=== PATIENT | male | born 1995 | race Two or more races ===

== ENCOUNTER 2025-03-12 15:54 | Emergency (ER) | payer MEDICAID, OTHER ==
[~2025-03-12] VITALS: Ht 177.8 cm; Wt 77.3 kg
--- NOTE | 2025-03-12 17:12 | ED.PDOC ---
HPI (NEURO) HPI Comments 29y M who presents to the ED is EMS for chief complaint of generalized weakness. EMS states pt was found in a field and bystanders called. EMS arrived on scene and pt was alert and oriented and -pt admitted to ETOH and methamphetamines and fentanyl use today. Pt had 02 sat of 85% on room air with otherwise stable vitals and pt was brought to the ED. Pt now in the ED, states he wants rehabilitation. Pt otherwise denies any other symptoms in the ED. Pt states he is homeless. Chief Complaint: General Weakness Time Seen by MD: 17:10 Reviewed Notes: Medications, Allergies Information Source: Patient Mode of Arrival: EMS Brought in by: EMS Past Medical History PAST MEDICAL HISTORY: Denies Surgical History: Denies all surgeries Family History Family History: Reviewed,noncontributory to illness Social History Smoker: Non-Smoker Alcohol: Denies ETOH Use Drugs: Marijuana, Methamphetamine, Other (fentayl) Constitutional: denies: chills, diaphoresis, fatigue, fever, malaise, sweats, weakness, others EENTM: denies: blurred vision, double vision, ear bleeding, ear discharge, ear drainage, ear pain, ear ringing, eye pain, eye redness, hearing loss, mouth pain, mouth swelling, nasal discharge, nose bleeding, nose congestion, nose pain, photophobia, tearing, throat pain, throat swelling, voice changes, others Respiratory: denies: cough, hemoptysis, orthopnea, SOB at rest, shortness of breath, SOB with excertion, stridor, wheezing, others Cardiovascular: denies: chest pain, dizzy spells, diaphoresis, Dyspnea on exertion, edema, irregular heart beat, left arm pain, lightheadedness, palpit ations, PND, syncope, others Gastrointestinal: denies: abdomen distended, abdominal pain, blood streaked b owels, constipated, diarrhea, dysphagia, difficulty swallowing, hematemesis, melena, nausea, poor appetite, poor fluid intake, rectal bleeding, rectal pain, vomiting, others Genitourinary: denies: burning, dysuria, flank pain, frequency, hematuria, incontinence, penile discharge, penile sore, pain, testicle pain, testicle swelling, urgency, others Neurological: denies: dizziness, fainting, headache, left sided numbness, left sided weakness, numbness, paresthesia, pre-existing deficit, right sided numbness, right sided weakness, seizure, speech problems, tingling, tremors, weakness, others Musculoskeletal: denies: back pain, gout, joint pain, joint swelling, muscle pain, muscle stiffness, neck pain, others Integumetry: denies: bruises, change in color, change in hair/nails, dryness, laceration, lesions, lumps, rash, wounds, others Allergic/Immunocompromised: denies: Difficulty Healing, Frequent Infections, Hives, Itching, others Hematologic/Lymphatic: denies: anemia, blood clots, easy bleeding, easy bruisi ng, swollen glands, others Endocrine: denies: excessive hunger, excessive sweating, excessive thirst, exce ssive urination, flushing, intolerance to cold, intolerance to heat, unexplained weight gain, unexplained weight loss, others Psychiatric: denies: anxiety, bipolar disorder, depression, hopeless, panic disorder, schizophrenia, sleepless, suicidal, others All Other Systems: Reviewed and Negative Physical Exam General Appearance: Mild Distress, Normal, Other (Somnolent) HEENT: Normal ENT Inspection, PERRL/EOMI Neck: Full Range of Motion, Non-Tender, Normal, Normal Inspection Respiratory: Chest Non-Tender, Lungs Clear, No Accessory Muscle Use, No Respiratory Distress, Normal Breath Sounds Cardiovascular: No Edema, No JVD, No Murmur, No Gallop, Normal Peripheral Pulses, Regular Rate/Rhythm Breast Exam: Deferred Gastrointestinal: No Organomegaly, Non Tender, No Pulsatile Mass, Normal Bowel Sounds, Soft Genitalia: Deferred Pelvic: Deferred Rectal: Deferred Extremities: No calf tenderness, Normal capillary refill, Normal inspection, Normal range of motion, Non-tender, No pedal edema Neurologic: Alert, spiritual care coordinator II-XII nml as Tested, No Motor Deficits, Normal Affect, Normal Mood, No Sensory Deficits Cerebellar Function: Normal Reflexes: Normal Skin: Dry, Normal Color, Warm Peripheral Pulses: 1+ carotid (R), 1+ carotid (L) Lymphatic: No Adenopathy Was a procedure done? Was a procedure done?: No Differential Diagnosis (SZ) Seizure: Drug Ingestion, Hypocalcemia, Hypoglycemia, Hyponatremia CVA: Drug Overdose, Electrolyte Imbalance General Weakness: Dehydration, Dysrhythmia, Electrolyte imbalance, Guillain- [place], Other (drug use, METH use disorder, homeless) Headache: N/A X-Ray, Labs, Meds, VS Vital Signs Date Time Temp Pulse Resp B/P (MAP) Pulse Ox O2 Delivery O2 Flow Rate FiO2 03/12/25 17:48 102 03/12/25 16:12 96 Nasal Cannula* 2 28 03/12/25 16:09 97.8 83 12 158/89 96 97.8 Lab Test 03/12/25 19:55 03/12/25 18:01 Range/Units Urine Color Pending Urine Clarity Pending Urine pH Pending Urine Specific [place] Pending Urine Protein Pending Urine Ketones Pending Urine Blood Pending Urine Nitrite Pending Urine Bilirubin Pending Urine Urobilinogen Pending Urine Leukocyte Esterase Pending Urine RBC Pending Urine Microscopic WBC Pending Urine Squamous Epithelial Cells Pending Urine Bacteria Pending Urine Glucose Pending White Blood Count 8.4 4.4-10.8 10^3/uL Red Blood Count 5.36 4.5-5.90 10^6/uL Hemoglobin 14.8 13.5-17.5 g/dL Hematocrit 45.7 41.0-53.0 % Mean Corpuscular Volume 85.1 80.0-100.0 fL Mean Corpuscular Hemoglobin 27.7 L 28.0-32.0 pg Mean Corpuscular Hemoglobin Concent 32.5 32.0-36.0 g/dL Red Cell Distribution Width 15.2 H 11.8-14.3 % Platelet Count 233 140-450 10^3/uL Mean Platelet Volume 8.0 6.9-10.8 fL Neutrophils (%) (Auto) 81.4 H 37.0-80.0 % Lymphocytes (%) (Auto) 11.9 10.0-50.0 % Monocytes (%) (Auto) 5.7 0.0-12.0 % Eosinophils (%) (Auto) 0.5 0.0-7.0 % Basophils (%) (Auto) 0.5 0.0-2.0 % Neutrophils # (Auto) 6.9 1.6-8.6 10 ^3/uL Lymphocytes # (Auto) 1.0 0.4-5.4 10 ^3/uL Monocytes # (Auto) 0.5 0-1.3 10 ^3/uL Eosinophils # (Auto) 0 0-0.8 10 ^3/uL Basophils # (Auto) 0 0-0.2 10 ^3/uL Nucleated Red Blood Cells 0.2 % Sodium Level 140 136-145 mmol/L Potassium Level 4.6 3.5-5.1 mmol/L Chloride Level 105 98-107 mmol/L Carbon Dioxide Level 26 20-31 mmol/L Anion Gap 9 5-15 Blood Urea Nitrogen 6 L 9-23 mg/dL Creatinine 0.59 L 0.700-1.30 mg/dL Glomerular Filtration Rate Calc 136 >90 mL/min BUN/Creatinine Ratio 10.2 10.0-20.0 Serum Glucose 97 74-106 mg/dL Calcium Level 8.7 8.7-10.4 mg/dL Magnesium Level 2.1 1.6-2.6 mg/dL X-Ray, Labs, Meds, VS Comment Course in the emergency department eventful Patient was found in the field called and wet an altered level of consciousness Patient abused alcohol and speed CBC ED for injury of the with the ET 1.4% neutrophils in normal H and H BNP negative Magnesium 2.1 Urine UDS Patient will be observed and manager social we will be consulted patient is homeless Time of 1ST Reevaluation: 17:40 Reevaluation 1ST: Unchanged Patient Education/Counseling: Diagnosis, Treatment Family Education/Counseling: Diagnosis, Treatment Departure 1 Departure Time of Disposition: 21:47 Impression: Primary Impression: Drug abuse and dependence Additional Impression: Homelessness Disposition: 30 STILL A PATIENT Condition: Fair Critical Care Note Critical Care Time?: No Stability Stability form required: Yes Heart Score Heart Score: Heart Score Response (Comments) Value History N/A 0 EKG N/A 0 Age <45 0 Risk Factors 1 or 2 risk factors 1 Troponin N/A 0 Total 1 I personally scribed for BA BARKSDALE MD ([email or web address]) on 03/12/25 at 17:12. Electronically submitted by Lyudmila Zimmerman ([email or web address]). BA BARKSDALE MD Mar 12, 2025 17:12
--- NOTE | 2025-03-12 17:59 | ECG ---
[facility] Test Date: 2025-03-12 Test Time: 17:48:56 Pat Name: HOWIE MARTINEZ Department: [facility] ED Patient ID: [id number] Room: Gender: M Balance Recesser: : 1995 Requested By: BA BARKSDALE Order Number: [id number] Reading MD: Alcon Centeno Measurements Intervals [place] Rate: 102 P: 65 WV: 155 QRS: 80 QRSD: 87 T: 69 QT: 347 QTc: 453 Interpretive Statements Sinus tachycardia RSR' in V1 or V2, probably normal variant ST elev, probable normal early repol pattern Electronically Signed On 03-14-2025 10:32:26 PST by Alcon Centeno Please click the below link to view image of tracing.
[2025-03-12 18:17] LABS: Hematocrit 45.7 % (41.0-53.0); Hemoglobin 14.8 g/dL (13.5-17.5); Mean Corpuscular Hemoglobin 27.7 pg (28.0-32.0); Mean Corpuscular Volume 85.1 fL (80.0-100.0); Nucleated Red Blood Cells % 0.2 %
[2025-03-12 18:24] LABS: Anion Gap 9 (5-15); Carbon Dioxide 26 mmol/L (20-31); Chloride 105 mmol/L (98-107); Potassium 4.6 mmol/L (3.5-5.1); Sodium 140 mmol/L (136-145)
[2025-03-12 18:29] LABS: Glucose 97 mg/dL (74-106)
[2025-03-12 18:30] LABS: BUN/Creatinine Ratio 10.2 (10.0-20.0); Magnesium 2.1 mg/dL (1.6-2.6)
[2025-03-12 18:31] LABS: Blood Urea Nitrogen 6 mg/dL (9-23); Calcium 8.7 mg/dL (8.7-10.4)
[2025-03-12 22:00] LABS: Urine Protein, UAD Negative (Negative)
[2025-03-13 06:12] LABS: Amphetamine Screen, Urine Pos (NEGATIVE); Barbiturate Scree,Urine Neg (NEGATIVE); Benzodiazephine Screen, Urine Neg (NEGATIVE); Cannabinoid Screen, Urine Neg (NEGATIVE); Cocaine Screen, Urine Neg (NEGATIVE)
[2025-03-13] MEDS: SODIUM CHLORIDE 0.9% 1,000 ML IV ONE (06:12)
[2025-03-13 06:13] LABS: Opiate Scree,Urine Neg (NEGATIVE); Phencyclidine Screen, Urine Neg (NEGATIVE)
[2025-03-14 03:30] VITALS: RESP 18; O2SAT 98
[2025-03-14 11:20] VITALS: PULSE 98; RESP 15; TEMP 98.2; O2SAT 98
[2025-03-14 15:30] VITALS: BP 115/95; PULSE 86; RESP 13; O2SAT 96
== END 2025-03-14 17:20 | disposition home or self-care (01) ==
LOC: ER 15:54 → EDBD 15:54 → ER 03-14 17:20
DX: F91.0 Conduct disorder confined to family context (principal); R53.1 Weakness; Z79.899 Other long term (current) drug therapy
CPT/HCPCS: 36415; 80048; 80307; 81001; 83735; 85025; 93005; 96360; 99285; J7030